=== PATIENT | female | born 1985 | race Caucasian/White ===

== ENCOUNTER → 2020-09-27 14:09 | Outpatient (CLI) | payer OTHER, SELFPAY ==
[2020-09-27 14:15] LABS: Basophils % 0.5 % (0.1-2.0); Eosinophils # 0.1 K/mm3 (0.0-0.4); Eosinophils % 1.6 % (0.1-12.0); Hemoglobin 12.1 g/dL (12.2-16.2); Lymphocytes # 1.9 K/mm3 (0.7-4.5); Lymphocytes % 22.2 % (10-50); Mean Corpuscular HGB Conc 30.2 g/dL (31.8-35.4); Mean Corpuscular Hemoglobin 27.4 pg (27.0-31.2); Mean Corpuscular Volume 90.8 fl (81-99); Mean Platelet Volume 8.1 fl (7.4-10.4); Monocytes # 0.5 K/mm3 (0.1-1.0); Monocytes % 5.3 % (1.7-9.3); Neutrophils % 70.3 % (37.0-80.0); Platelet Count 305 K/mm3 (142-424); Red Blood Count 4.41 M/mm3 (4.20-5.40); Red Cell Distribution Width 15.5 % (11.5-17.5); White Blood Count 8.5 K/mm3 (4.8-10.8)
[2020-09-27 14:25] LABS: Alanine Aminotransferase 39 U/L (12-78); Albumin Level 4.1 g/dl (3.5-5.0); Albumin/Globulin Ratio 1.5 (1.1-1.8); Alkaline Phosphatase 92 U/L (38-126); Anion Gap 9.3 mEq/L (5-15); Aspartate Amino Transferase 33 U/L (14-36); Bilirubin,Total 0.8 mg/dl (0.2-1.3); Blood Urea Nitrogen 13 mg/dl (7-17); Calcium 9.3 mg/dl (8.4-10.2); Carbon Dioxide 26 mmol/L (22.0-30.0); Chloride 106 mmol/L (98-107); Chol/HDL Ratio 5.9 (1-3.5); Cholesterol 196 mg/dl (140-200); Estimated Glomerular Filt Rate 115 ml/min (>60); GFR (African American) 139 ML/MIN (>60); Globulin 2.8 g/dL (1.3-3.2); Glucose 96 mg/dl (74-100); HDL Cholesterol 33 mg/dl (40-60); Potassium 4.3 mmoL/L (3.5-5.1); Sodium 137 mmol/L (136-145); Total Protein,Serum 6.9 g/dl (6.3-8.2); Triglycerides 156 mg/dl (30-150); VLDL Cholesterol 31 mg/dL (0-40)
[2020-09-27 14:36] LABS: Direct LDL Cholesterol 131.29 mg/dL (100-129)
[2020-09-27 14:41] LABS: 25-OH Vitamin D, Total 13.6 ng/mL (30-100)
[2020-09-27 14:42] LABS: Free T4 (Free Thyroxine) 1.04 ng/dl (0.78-2.19)
[2020-09-27 14:55] LABS: Thyroid Stimulating Hormone 7.75 uIU/mL (0.465-4.68)
== END ==
PROVIDERS: Visit Provider Emergency Medicine
DX: E03.9 Hypothyroidism, unspecified (principal); F32.9 Major depressive disorder, single episode, unspecified; F41.9 Anxiety disorder, unspecified; E55.9 Vitamin D deficiency, unspecified
CPT/HCPCS: 80053; 80061; 82306; 84439; 84443; 85025

== ENCOUNTER 2021-07-24 12:00 | Emergency (ER) | payer BC, OTHER, SELFPAY ==
[2021-07-24 12:09] VITALS: BP 156/91; PULSE 114; RESP 16; TEMP 36.8; O2SAT 99; BMI 50.8
[2021-07-24 12:16] LABS: UTC Influenza A Antigen Negative (Negative); UTC Influenza B Antigen Negative (Negative)
--- NOTE | 2021-07-24 12:31 | HMH.EDUTC ---
[facility] Disposition Clinical Impression: Vomiting and diarrhea Headache Qualifiers: Headache type: unspecified Headache chronicity pattern: unspecified pattern Intractability: not intractable Qualified Code(s): R51.9 - Headache, unspecified Disposition: Home, Self-Care Condition on Discharge: Good Instructions: DI for Chronic Pain -- Adult Additional Instructions: Go home and you can take a benadryl if you have it and can take to to help with headache FOllow up with your Family Doctor if no improvement or any worsening of symptoms Return if needed Straight to ER if any life threatening symptoms Prescriptions: Ondansetron [Zofran 4mg ODT] 4 mg PO TIDP PRN #9 tab PRN Reason: Vomiting Transmission Status: Received by [id number] Referrals: Wood Muniz MD [Primary Care Provider] - As needed Forms: Work/School Release Time of Disposition: 12:42 Medical Decision Making - Chuck Inquiry Pt receiving controlled substance: No Chuck was queried for this patient: No Vital Signs: 07/24/21 12:09 07/24/21 13:05 Temperature 98.3 F 98.3 F Temperature Source Oral Pulse Rate 114 H Pulse Rate [Left] 114 H Respiratory Rate 16 16 Blood Pressure 156/91 H Blood Pressure [Right Arm] 156/91 H Blood Pressure Mean [Right Arm] 112 02 Sat by Pulse Oximetry 99 - Lab Data Lab Results 07/24/21 12:11: Influenza Type A Ag Negative, Influenza Type B Ag Negative Orders (Tests/Meds): ED MEDICATIONS Discontinued Medications Generic Name Dose Route Start Last Admin Trade Name Freq PRN Reason Stop Dose Admin Ketorolac Tromethamine 30 mg 07/24/21 12:39 07/24/21 13:04 Ketorolac 60mg/2ml Vial IM 07/24/21 12:40 30 mg ONCE ONE Administration Ondansetron HCl 4 mg 07/24/21 12:39 07/24/21 13:05 Ondansetron 4mg Odt SL 07/24/21 12:40 4 mg ONCE ONE Administration Medical Decision Narrative: Patient states that she has taken zofran and Toradol in the past without reactions or complications Patient declined benadryl and migraine 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 by RN): pt c/o a migraine and n/v x2 days. pt states she was around a friend who was flu b positive 4 days ago. pt wants to make sure its just a migraine and not the flu. HEENT Symptoms (Recalled from RN notes): Yes Resp Symptoms (Recalled from RN notes): No Skin Symptoms (Recalled from RN notes): No MS Symptoms (Recalled from RN notes): No Functional Status (Recalled from RN notes): wnl - History of Present Illness Provider Complaint: Patient states that she has been having headache for a couple days with vomiting and diarrhea State that she has been around someone with flu b State that she wanted to get checked for hte flu and get something for the vomiting - Related Data Previous Rx's Medication Instructions Recorded cholecalciferol (vitamin D3) 1,250 1,250 mcg PO WEEKLY #5 cap 10/05/20 mcg (50,000 unit) capsule cholecalciferol (vitamin D3) 25 25 mcg PO DAILY #90 cap 10/05/20 mcg (1,000 unit) capsule levothyroxine 125 mcg capsule 125 mcg PO DAILY #90 cap 12/31/20 phentermine 37.5 mg tablet 37.5 mg PO DAILY #30 tab 12/31/20 alprazolam 0.5 mg tablet 0.5 mg PO BID PRN #60 tab 07/08/21 atomoxetine 100 mg capsule 100 mg PO DAILY #30 cap 07/08/21 bupropion HCl 300 mg 24 hr tablet, 300 mg PO DAILY #30 tab 07/08/21 extended release buspirone 30 mg tablet 30 mg PO BID #60 tab 07/08/21 cariprazine 3 mg capsule 3 mg PO DAILY #30 cap 07/08/21 doxepin 25 mg capsule 25 mg PO QHS #30 cap 07/08/21 trazodone 100 mg tablet 100 mg PO HS PRN #30 tab 07/08/21 Ondansetron [Zofran 4mg ODT] 4 mg PO TIDP PRN #9 tab 07/24/21 Allergies Allergy/AdvReac Type Se
[2021-07-24 13:05] VITALS: BP 156/91; PULSE 114; RESP 16; TEMP 36.8
== END 2021-07-24 13:06 | disposition home or self-care (01) ==
PROVIDERS: Emergency Provider Nurse Practitioner; PCP Emergency Medicine
DX: R11.2 Nausea with vomiting, unspecified (principal); F41.8 Other specified anxiety disorders; I10 Essential (primary) hypertension; E03.9 Hypothyroidism, unspecified; Z79.899 Other long term (current) drug therapy
CPT/HCPCS: 87804; 96372; 99213; G0463

== ENCOUNTER → 2021-09-05 14:21 | Outpatient (CLI) | payer BC, OTHER, SELFPAY ==
[2021-09-05 14:32] LABS: MANUAL DIFFERENTIAL MANUAL DIFFERENTIAL (MANUAL DIFF); Microscopic, Urine URINE MICROSCOPIC (MICROSCOPIC)
[2021-09-05 16:10] LABS: Alanine Aminotransferase 51 U/L (12-78); Albumin Level 4.1 g/dl (3.5-5.0); Albumin/Globulin Ratio 1.5 (1.1-1.8); Alkaline Phosphatase 91 U/L (38-126); Anion Gap 10.1 mEq/L (5-15); Aspartate Amino Transferase 35 U/L (14-36); Bilirubin,Total 0.5 mg/dl (0.2-1.3); Blood Urea Nitrogen 17 mg/dl (7-17); Carbon Dioxide 27 mmol/L (22.0-30.0); Chloride 106 mmol/L (98-107); Estimated Glomerular Filt Rate 72 ml/min (>60); GFR (African American) 87 ML/MIN (>60); Globulin 2.8 g/dL (1.3-3.2); Glucose 93 mg/dl (74-100); Potassium 4.1 mmoL/L (3.5-5.1); Sodium 139 mmol/L (136-145); Total Protein,Serum 6.9 g/dl (6.3-8.2); Uric Acid 7.3 mg/dl (2.5-6.2)
[2021-09-05 16:14] LABS: Appearance,Urine CLEAR (Clear); Bilirubin,Urine Negative (Negative); Blood, Urine TRACE-I (Negative); Color,Urine YELLOW (Yellow); Glucose,Urine (UA) Negative (Negative); Ketones,Urine Negative (Negative); Leukocyte Esterase,Urine 1+ (Negative); Nitrate,Urine Negative (Negative); PH,Urine 5.5 (5.0-8.5); Protein,Urine Negative (Negative); Specific Gravity, Urine >= 1.030 (1.005-1.030); Urobilinogen,Urine 0.2 EU/dl (0.2)
[2021-09-05 16:20] LABS: Basophils # 0.1 K/mm3 (0-0.2); Basophils % 0.8 % (0.1-2.0); Eosinophils # 0.2 K/mm3 (0.0-0.4); Eosinophils % 2.4 % (0.1-12.0); Hematocrit 35.8 % (37.0-47.0); Lymphocytes # 2.2 K/mm3 (0.7-4.5); Mean Corpuscular HGB Conc 33.4 g/dL (31.8-35.4); Mean Corpuscular Hemoglobin 29.4 pg (27.0-31.2); Mean Corpuscular Volume 87.8 fl (81-99); Mean Platelet Volume 8.1 fl (7.4-10.4); Monocytes # 0.4 K/mm3 (0.1-1.0); Monocytes % 5.3 % (1.7-9.3); Neutrophils % 63.5 % (37.0-80.0); Platelet Count 314 K/mm3 (142-424); Red Blood Count 4.07 M/mm3 (4.20-5.40); White Blood Count 7.9 K/mm3 (4.8-10.8)
[2021-09-05 16:28] LABS: 25-OH Vitamin D, Total 31.1 ng/mL (30-100)
[2021-09-05 16:43] LABS: Thyroid Stimulating Hormone 2.59 uIU/mL (0.465-4.68)
[2021-09-05 16:57] LABS: Bacteria,Urine 3+ /lpf
[2021-09-05 17:02] LABS: Vitamin B12 323 pg/mL (239-931)
[2021-09-05 20:01] LABS: Anisocytosis 2+; Lymphocytes % 22 % (10-50); Monocytes % 5 % (2-9); Neutrophils % 69 % (42-76); Platelet Estimate Normal; Total Cells Counted 100
[2021-09-05 20:02] LABS: Ovalocytes 1+; Stomatocytes 1+
[2021-09-05 20:09] LABS: Adenovirus,PCR Not Detected (NotDetected); Bordetella Pertussis Not Detected (NotDetected); Chlamydophila Pneumoniae, PCR Not Detected (NotDetected); Coronavirus 19, PCR Not Detected (NotDetected); Coronavirus 229E Not Detected (NotDetected); Coronavirus NL63 Not Detected (NotDetected); Coronavirus OC43 Not Detected (NotDetected); Coronovirus HKU1,PCR Not Detected (NotDetected); Human Metapneumovirus Not Detected (NotDetected); Influenza A, PCR Not Detected (NotDetected); Influenza AH1, 2009 Not Detected (NotDetected); Influenza AH1, PCR Not Detected (NotDetected); Influenza AH3,PCR Not Detected (NotDetected); Influenza B, PCR Not Detected (NotDetected); Mycoplasma Pneumoniae, PCR Not Detected (NotDetected); Parainfluenza 1, PCR Not Detected (NotDetected); Parainfluenza 2, PCR Not Detected (NotDetected); Parainfluenza 3, PCR Not Detected (NotDetected); Parainfluenza 4, PCR Not Detected (NotDetected); Respiratory Syncytial Virus Not Detected (NotDetected); Rhinovirus/Enterovirus Not Detected (NotDetected)
[2021-09-05 20:20] LABS: Erythrocyte Sedimentation Rate 73 mm/hr (0-20)
[2021-09-07 08:17] LABS: RA Latex Turbid. <10.0 IU/mL (<14.0)
[2021-09-07 13:46] LABS: Anti-Centromere B Antibodies <0.2 AI (0.0-0.9); Anti-DNA (DS) Ab Qn 1 IU/mL (0-9); Anti-Jo-1 <0.2 AI (0.0-0.9); Anti-Smith Antibody <0.2 AI (0.0-0.9); Antichromatin Antibodies <0.2 AI (0.0-0.9); Antiscleroderma-70 Antibodies <0.2 AI (0.0-0.9); RNP Antibodies 0.3 AI (0.0-0.9); Sjogren's Anti-SS-A 1.4 AI (0.0-0.9); Sjogren's Anti-SS-B <0.2 AI (0.0-0.9)
[2021-09-07 14:21] LABS: Anti-Centromere B Antibodies <0.2 AI (0.0-0.9); Anti-DNA (DS) Ab Qn 1 IU/mL (0-9); Anti-Jo-1 <0.2 AI (0.0-0.9); Antichromatin Antibodies <0.2 AI (0.0-0.9); Antiscleroderma-70 Antibodies <0.2 AI (0.0-0.9); RNP Antibodies 0.3 AI (0.0-0.9); Sjogren's Anti-SS-A 1.3 AI (0.0-0.9); Sjogren's Anti-SS-B <0.2 AI (0.0-0.9)
[2021-09-08 11:20] LABS: Antinuclear Antibodies, IFA Negative (.)
[2021-09-12 08:50] LABS: Anti-Centromere B Abs Charge YES; Anti-DNA (DS) Ab Charge YES; Anti-Jo-1 Charge YES; Antichromatin Abs Charge YES; Antinuclear Antibodies (ANA) Positive; Sjogren's Anti-SS-A Ab Charge YES; Sjogren's Anti-SS-B Ab Charge YES
[2021-09-12 08:51] LABS: Antiscleroderma-70 Abs Charge YES; RNP Antibodies Charge YES; Smith Antibodies Charge YES
[2021-09-27 13:13] LABS: APTT 24.4 sec (.); Anti-Cardiolipin Antibody IgG <10 GPL (.); Anti-Cardiolipin Antibody IgM <10 MPL (.); Beta-2 Glycoprotein I Ab, IgA <10 SAU (.); Beta-2 Glycoprotein I Ab, IgG <10 SGU (.); Beta-2 Glycoprotein I Ab, IgM <10 SMU (.); Hexagonal Phase Phospholipid 0 sec (.); INR 0.9 ratio (.); Prothrombin Time 9.9 sec (.); Thrombin Time 16.6 sec (.)
== END ==
PROVIDERS: Visit Provider Nurse Practitioner Family
DX: R53.1 Weakness (principal); R69 Illness, unspecified; R68.89 Other general symptoms and signs; R09.89 Other specified symptoms and signs involving the circulatory and respiratory systems; N39.0 Urinary tract infection, site not specified; B96.20 Unspecified Escherichia coli [E. coli] as the cause of diseases classified elsewhere; E66.01 Morbid (severe) obesity due to excess calories; Z68.43 Body mass index [BMI] 50.0-59.9, adult
CPT/HCPCS: 36415; 80053; 81001; 82306; 82607; 84439; 84443; 84550; 85007; 85014; 85018; 85048; 85049; 85597; 85598; 85610; 85613; 85651; 85670; 85730; 86038; 86146; 86147; 86225; 86235; 86431; 87086; 87186; 87581; 87632; 87798; C9803; U0003; U0005

== ENCOUNTER → 2021-10-19 06:44 | Outpatient (CLI) | payer BC, OTHER, SELFPAY ==
--- NOTE | 2021-10-19 06:49 | CT_ITS ---
FINAL REPORT CLINICAL HISTORY: eval for mass, lesion, headaches, dilated pupil FINDINGS: Axial images of the head were obtained without contrast. Coronal reformatted images were also obtained.This study was performed with techniques to keep radiation doses as low as reasonably achievable (ALARA). Individualized dose reduction techniques using automated exposure control or adjustment of mA and/or kV according to the patient''s size were employed. There is no evidence of intracranial hemorrhage or mass. The ventricular size is within normal limits. There is no evidence of shift of the midline structures. No abnormal extra axial fluid collection is identified. No skull abnormality is seen on the bone window images. IMPRESSION: No acute intracranial abnormality. Reviewed, Interpreted and Dictated by Victor Manuel Rosado III, MD Transcribed by Majo Parsons Authenticated and [facility]
== END ==
PROVIDERS: PCP Nurse Practitioner Family; Visit Provider Nurse Practitioner Family
DX: R51.9 Headache, unspecified (principal); H57.02 Anisocoria
CPT/HCPCS: 70450

== ENCOUNTER → 2021-11-09 13:02 | Outpatient (CLI) | payer BC, OTHER, SELFPAY | PROVIDERS: PCP Emergency Medicine; Visit Provider Nurse Practitioner Family | DX: G47.30 Sleep apnea, unspecified (principal); R06.83 Snoring; R53.83 Other fatigue; G47.19 Other hypersomnia; R51.9 Headache, unspecified | CPT/HCPCS: 95806 ==

== ENCOUNTER → 2022-08-07 11:39 | Outpatient (CLI) | payer OTHER, SELFPAY ==
--- NOTE | 2022-08-07 11:43 | XR_ITS ---
FINAL REPORT CLINICAL HISTORY: Left foot pain FINDINGS: AP, oblique and lateral views of the left foot were obtained. There is no prior exam for comparison. There is no acute fracture or dislocation. An accessory navicular is seen. The joint spaces are preserved. Soft tissues are normal. IMPRESSION: No acute osseous abnormality of the left foot. Reviewed, Interpreted and Dictated by Leia Mak MD Transcribed by Viviana Kirkpatrick Authenticated and [facility]
--- NOTE | 2022-08-07 11:43 | XR_ITS ---
FINAL REPORT CLINICAL HISTORY: Right foot pain FINDINGS: RIGHT FOOT 3 views of the right foot were obtained. There is no acute fracture or dislocation. An accessory navicular is seen. Visualized joint spaces are normally aligned. Soft tissues are unremarkable. IMPRESSION: No acute bony abnormality. Reviewed, Interpreted and Dictated by Leia Mak MD Transcribed by Viviana Kirkpatrick Authenticated and [facility]
== END ==
PROVIDERS: PCP Family Medicine; Visit Provider Nurse Practitioner Family
DX: M79.672 Pain in left foot (principal); M79.671 Pain in right foot
CPT/HCPCS: 73630

== ENCOUNTER → 2022-08-18 13:58 | Outpatient (CLI) | payer OTHER, SELFPAY ==
[2022-08-18 15:16] LABS: Thyroid Stimulating Hormone 8.61 uIU/mL (0.465-4.68)
[2022-08-18 16:10] LABS: Hemoglobin A1C 7.2 % (4.0-6.0)
== END ==
PROVIDERS: PCP Family Medicine; Visit Provider Family Medicine
DX: F41.9 Anxiety disorder, unspecified (principal); Z79.899 Other long term (current) drug therapy
CPT/HCPCS: 83036; 84443

== ENCOUNTER → 2022-08-28 11:02 | Outpatient (POV) | payer OTHER, SELFPAY ==
--- NOTE | 2022-08-28 11:14 | EXP.PAIN.OV ---
HPI Data of Consult Patient: new to practice Consult date: 08/28/22 Requesting Physician: Sabina Blount APRN Primary Care Provider: Ash Rubalcava MD Consult Narrative Reason for consult: Low back pain, bilateral leg pain, feet pain History of present illness: Ms. Holbrook is a 37 year old female who presents today as a new patient. She is a referral from Dr. Rubalcava's office. Today she rates her pain at a 7 out of 10. She states her pain is all in her low back and radiates into her bilateral lower extremities with bilateral feet pain. Patient states this has been going on for over the last year and a half and denies any specific trauma or injury. 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 Patient does describe this as a throbbing sensation with numbness into her legs. She states she has issues with her arches that also cause pain. Patient does state her pain along the right side is more persistent and often gives a sharp shooting pain. Patient has been to [facility] for some autoimmune issues and has done imaging there. She states that they are thinking she has Sjogren's. Patient denies any previous injections, surgery or physical therapy and chiropractor. She has tried [id number] Motrin and ibuprofen with minimal improvement. Patient states that heat does provide temporary relief. Patient has tried multiple [id number] topicals with no improvement. Patient is currently managed with gabapentin 600 mg twice a day, alprazolam 0.5 mg twice a day and phentermine daily from her primary care doctor. Patient denies any side effects from these medications. Her Chuck is [phone]. Its been reviewed and appropriate. CC: Sabina Blount APRN [facility] Disclaimer: The information contained in this section may have been updated after the patient was seen, as this information can be updated by other users. Medical History Anxiety Depression with suicidal ideation Fibromyalgia Headache Obesity Social History (Updated 08/28/22 @ 11:08 by Marlen Bagn RN) Smoking Status: Never smoker alcohol intake: current substance use type: denies use current occupational status: employed Travel in the last 8 weeks: None household members: family housing: house number of children: 3 Review of Systems Review of Systems Review of systems:: pertinent systems reviewed and negative unless documented below Review of systems (narrative): Review of Systems: General: No recent weight changes, no fever, no sleep disturbances Respiratory: No cough, no shortness of air, no recurring pulmonary infections Cardiovascular/peripheral vascular: No chest pain, no palpitations, no edema, no shortness of breath Gastrointestinal: No new onset incontinence, normal bowel movements reported Genitourinary: No new onset incontinence Musculoskeletal: Low back pain, bilateral leg pain Psychiatric: [Normal mood/affect] Neurological: [Denies weakness in extremities], [denies balance issues] Meds Home Medications and Allergies Home Medications Medication Instructions Recorded Confirmed Type cholecalciferol (vitamin D3) 25 25 mcg PO DAILY #90 caps 09/05/21 08/18/22 Rx mcg (1,000 unit) capsule alprazolam 0.5 mg tablet (Xanax) 0.5 mg PO BID PRN anxiety #60 tabs 06/01/22 08/18/22 Rx bupropion HCl 300 mg 24 hr tablet, 300 mg PO DAILY #90 tabs 06/01/22 08/18/22 Rx extended release (Wellbutrin XL) buspirone 30 mg tablet 30 mg PO BID #180 tabs 06/01/22 08/18/22 Rx cariprazine 3 mg capsule (Vraylar) 3 mg PO DAILY #90 caps 06/01/22 08/18/22 Rx cholecalciferol (vitamin D3) 1,250 1,250 mcg PO WEEKLY #15 caps 06/01/22 08/18/22 Rx mcg (50,000 unit) capsule trazodone 100 mg tablet 100 mg PO HS PRN sleep #90 tabs 06/01/22 08/18/22 Rx ubrogepant 50 mg tablet (Ubrelvy) 50 mg PO O
[2022-08-28 11:48] VITALS: BP 158/77; PULSE 89; RESP 20; O2SAT 96; BMI 59.4
== END ==
LOC: SC.PAIN 11:03
PROVIDERS: PCP Family Medicine; Visit Provider Nurse Practitioner Family
DX: M54.16 Radiculopathy, lumbar region (principal); M54.50 Low back pain, unspecified; M46.1 Sacroiliitis, not elsewhere classified; M79.671 Pain in right foot; M79.672 Pain in left foot
CPT/HCPCS: 99202; G0463

== ENCOUNTER 2023-06-05 16:44 | Outpatient (CLI) | payer BC, OTHER, SELFPAY ==
[2023-06-05 17:02] LABS: Basophils # 0.1 K/mm3 (0-0.2); Basophils % 0.6 % (0.1-2.0); Eosinophils # 0.2 K/mm3 (0.0-0.4); Eosinophils % 1.6 % (0.1-12.0); Hematocrit 41.2 % (37.0-47.0); Hemoglobin 13.7 g/dL (12.2-16.2); Lymphocytes # 2.7 K/mm3 (0.7-4.5); Lymphocytes % 28.4 % (10-50); Mean Corpuscular HGB Conc 33.3 g/dL (31.8-35.4); Mean Corpuscular Volume 87.3 fl (81-99); Mean Platelet Volume 8.5 fl (7.4-10.4); Monocytes # 0.4 K/mm3 (0.1-1.0); Monocytes % 4.3 % (1.7-9.3); Neutrophils # 6.2 K/mm3 (1.8-7.8); Neutrophils % 65.1 % (37.0-80.0); Platelet Count 324 K/mm3 (142-424); Red Blood Count 4.72 M/mm3 (4.20-5.40); Red Cell Distribution Width 15.9 % (11.5-17.5); White Blood Count 9.6 K/mm3 (4.8-10.8)
[2023-06-05 17:33] LABS: Hemoglobin A1C 5.2 % (4.0-6.0)
[2023-06-05 17:34] LABS: Opiate Screen,Urine Negative ng/ml (<300); Phencyclidine Screen,Urine Negative ng/ml (<25)
[2023-06-05 17:36] LABS: Amphetamine/Metha Screen,Urine Negative ng/ml (<1000); Benzodiazepines Screen,Urine Negative ng/ml (<200)
[2023-06-05 17:37] LABS: Barbiturates Screen,Urine Negative ng/ml (<200)
[2023-06-05 17:38] LABS: Cannabinoid Screen,Urine Negative ng/ml (<50); Methadone Screen,Urine Negative ng/ml (<300)
[2023-06-05 17:39] LABS: 25-OH Vitamin D, Total 24.8 ng/mL (30-100); Cocaine Screen,Urine Negative ng/ml (<300)
[2023-06-05 17:50] LABS: Chloride 101 mmol/L (98-107); Sodium 137 mmol/L (136-145)
[2023-06-05 17:52] LABS: Blood Urea Nitrogen 13 mg/dl (7-17); Estimated Glomerular Filt Rate 82 ml/min (>60); GFR (African American) 99 ML/MIN (>60)
[2023-06-05 17:53] LABS: Alanine Aminotransferase 93 U/L (12-78); Albumin Level 4.3 g/dl (3.5-5.0); Albumin/Globulin Ratio 1.4 (1.1-1.8); Alkaline Phosphatase 94 U/L (38-126); Aspartate Amino Transferase 60 U/L (14-36); Bilirubin,Total 0.7 mg/dl (0.2-1.3); Carbon Dioxide 27 mmol/L (22.0-30.0); Cholesterol 174 mg/dl (140-200); Glucose 102 mg/dl (74-100); HDL Cholesterol 29 mg/dl (40-60); Total Protein,Serum 7.3 g/dl (6.3-8.2); Triglycerides 164 mg/dl (30-150); Uric Acid 6.4 mg/dl (2.5-6.2); VLDL Cholesterol 33 mg/dL (0-40)
[2023-06-05 18:11] LABS: Direct LDL Cholesterol 125.03 mg/dL (100-129); T4 (Thyroxine) 10.8 ug/dl (5.53-11.0)
[2023-06-05 18:44] LABS: Vitamin B12 429 pg/mL (239-931)
[2023-06-06 08:19] LABS: Triiodothyronine (T3) Free 4.3 pg/mL (2.0-4.4)
[2023-06-06 12:37] LABS: Magnesium 2.1 mg/dl (1.6-2.3)
== END 2023-06-05 23:59 ==
LOC: LAB.DROPOF 16:44
PROVIDERS: PCP Nurse Practitioner Family; Visit Provider Nurse Practitioner Family
DX: D64.9 Anemia, unspecified (principal); I10 Essential (primary) hypertension; M79.7 Fibromyalgia; E11.9 Type 2 diabetes mellitus without complications; E79.0 Hyperuricemia without signs of inflammatory arthritis and tophaceous disease; E03.1 Congenital hypothyroidism without goiter; Z79.899 Other long term (current) drug therapy; Z79.84 Long term (current) use of oral hypoglycemic drugs; E55.9 Vitamin D deficiency, unspecified
CPT/HCPCS: 80053; 80061; 80307; 82306; 82607; 82728; 83036; 83735; 84436; 84481; 84550; 85025

== ENCOUNTER 2023-06-19 09:53 | Outpatient (CLI) | payer BC, OTHER, SELFPAY ==
--- NOTE | 2023-06-19 09:54 | CA_ITS ---
APPROVED REPORT EXAM: Comprehensive 2D, Doppler, and color-flow Echocardiogram Race Starter: Sobeida Barroso RVT Ht: 5 ft 2 in Wt: 334lbs BSA: 2.38 BP: 136/92 mmHg Indications: DYSPENA,OBESITY,TACHYCARDIA,DM,EDEMA,HTN TDS-R/T PT BODY HABITUS 2D Dimensions LA Volume 37.00 mL LA Volume Index 15.55 mL/m2 (M/F) 16-34 M-Mode Dimensions RVDd 2.58 cm (0.9-2.6) LA Diam 3.34 cm (1.9-4.0) LVDd 5.53 cm (3.5-5.7) LVDs 3.89 cm (3.5-5.7) IVSd 0.47 cm (0.6-1.1) PWd 0.84 cm (0.6-1.1) EF (Teich) 56.10% FS 29.70% EDV (Teich) 149.30 mL TAPSE 1.97 (<1.7) ESV (Teich) 65.50 mL LV Diastology E Decel Time 223 (160-240 msec) E/A Ratio 1.1 Aortic Valve LATASHA Index 1.87 cm2/m2 AoV Peak Javier. 101.0 (50-130 cm/s) AO Peak GR. 4.10 mmHg AO Mean GR. 2.20 (<5 mmHg) AO VTI 15.9 (18-25 cm) LATASHA (VTI) 4.55 (2.5-4.5 cm2) Mitral Valve MV E Max Javier. 53.0 (40-130 cm/s) MV A Velocity 47.0 (40-130 cm/s) E/A Ratio 1.14 MV PHT 65.0 ms Pulmonary Valve PV Peak Velocity 81.0 (50-150 cm/s) Left Ventricle The left ventricle is normal size. The left ventricular systolic function is normal. The left ventricular ejection fraction is within the normal range. There is normal LV wall thickness. Normal biventricular systolic function. There is normal LV segmental wall motion. The left ventricular diastolic function is normal. LVEF is 60%. Right Ventricle The right ventricle is normal size. The right ventricular systolic function is normal. Atria The left atrium size is normal. The right atrium size is normal. There is no Doppler evidence of interatrial shunt. Aortic Valve The aortic valve opens well. There is no aortic valvular stenosis. No aortic regurgitation is present. Mitral Valve The mitral valve is normal in structure. No evidence of mitral valve stenosis. There is no mitral valve regurgitation noted. Tricuspid Valve The tricuspid valve leaflets are thin and pliable. Trace tricuspid regurgitation. There is insufficient TR jet to estimate RVSP. Pulmonic Valve The pulmonary valve is normal in structure. Trace pulmonic regurgitation. Great Vessels The aortic root is normal in size. The ascending aorta is normal in size. IVC is normal in size and collapses >50% with inspiration. Pericardium There is no pericardial effusion. Other Information Study Quality: Adequate Conclusion Normal biventricular systolic function. No significant valvular stenosis or regurgitation. Electronically signed by : Clarissa Resendez MD 06/23/2023 20:43:47
== END 2023-06-19 23:59 ==
PROVIDERS: PCP Nurse Practitioner Family; Visit Provider Nurse Practitioner Family
DX: R06.09 Other forms of dyspnea (principal); R60.0 Localized edema
CPT/HCPCS: 93306

== ENCOUNTER 2023-07-06 09:58 | Outpatient (CLI) | payer BC, OTHER, SELFPAY ==
[2023-07-06 11:17] LABS: Chloride 105 mmol/L (98-107); Sodium 138 mmol/L (136-145)
[2023-07-06 11:18] LABS: Potassium 4.4 mmoL/L (3.5-5.1)
[2023-07-06 11:20] LABS: Alanine Aminotransferase 78 U/L (12-78); Alkaline Phosphatase 92 U/L (38-126); Aspartate Amino Transferase 39 U/L (14-36); Bilirubin,Total 0.7 mg/dl (0.2-1.3); Blood Urea Nitrogen 14 mg/dl (7-17); Estimated Glomerular Filt Rate 81 ml/min (>60); GFR (African American) 98 ML/MIN (>60)
[2023-07-06 11:21] LABS: Albumin Level 4.1 g/dl (3.5-5.0); Albumin/Globulin Ratio 1.5 (1.1-1.8); Anion Gap 8.4 mEq/L (5-15); Calcium 9.6 mg/dl (8.4-10.2); Carbon Dioxide 29 mmol/L (22.0-30.0); Globulin 2.7 g/dL (1.3-3.2); Glucose 93 mg/dl (74-100); Total Protein,Serum 6.8 g/dl (6.3-8.2)
[2023-07-17 19:10] LABS: Magnesium,RBC 5.9 mg/dL (3.7-7.0)
== END 2023-07-06 23:59 ==
LOC: LAB 09:59
PROVIDERS: PCP Nurse Practitioner Family; Visit Provider Nurse Practitioner Family
DX: M79.7 Fibromyalgia (principal); R74.8 Abnormal levels of other serum enzymes
CPT/HCPCS: 36415; 80053; 83735

== ENCOUNTER 2023-09-25 22:41 | Outpatient (CLI) | payer BC, OTHER, SELFPAY | END 2023-09-25 23:59 | disposition home or self-care (01) | LOC: LAB 22:42 | PROVIDERS: PCP Nurse Practitioner Family; Visit Provider Nurse Practitioner Family | DX: R35.0 Frequency of micturition (principal) | CPT/HCPCS: 87086 ==

== ENCOUNTER 2023-10-17 09:51 | Outpatient (CLI) | payer BC, OTHER, SELFPAY | END 2023-10-17 23:59 | disposition home or self-care (01) | LOC: LAB.DROPOF 10-18 09:51 | PROVIDERS: PCP Nurse Practitioner Family; Visit Provider Nurse Practitioner Family | DX: T14.8XXA Other injury of unspecified body region, initial encounter (principal); B95.7 Other staphylococcus as the cause of diseases classified elsewhere | CPT/HCPCS: 87070; 87077; 87186; 87205 ==